=== PATIENT | female | born 1995 | race Two or more races ===

== ENCOUNTER 2021-07-09 23:05 | Emergency (ER) | payer MEDICAID, OTHER ==
[~2021-07-09] VITALS: Ht 157.5 cm; Wt 71.2 kg
[2021-07-10 01:57] VITALS: BP 90/56
[2021-07-10] MEDS ORDERED: ALPRAZolam 0.5 MG TAB PO ONE (02:15)
== END 2021-07-10 03:28 | disposition home or self-care (01) ==
LOC: ER 23:05
DX: F41.1 Generalized anxiety disorder (principal)